=== PATIENT | female | born 2000 | race Caucasian/White ===

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

== ENCOUNTER → 2022-05-03 12:42 | Outpatient (CLI) | payer OTHER, SELFPAY ==
--- NOTE | ~2022-05-03 | CT_ITS ---
EXAMINATION: CT BRAIN W/O DATE: 05/03/2022 13:04 INDICATION: Headaches TECHNIQUE: Computed tomography (CT) of the head was performed without intravenous contrast. The dose- length product was 599.57 mGy-cm. Automated exposure control and iterative reconstruction technique w ere employed. COMPARISON: No prior studies for comparison. FINDINGS: Normal brain parenchymal volume for age. Normal nogueira-white differentiation. No acute intrac ranial hemorrhage, infarction, mass or mass effect. No ventriculomegaly or midline shift. Midline sagittal images demonstrate a normal corpus callosum, c raniovertebral junction and sella turcica. Basilar cisterns are patent. Paranasal sinuses and mastoids are pneumatized. No depressed skull fractures. IMPRESSION: 1. No acute intracranial abnormality. Reviewed, dictated and finalized at location A. CUTTER
== END ==
PROVIDERS: PCP Family Medicine; Visit Provider Internal Medicine Endocrinology, Diabetes & Metabolism
DX: G44.89 Other headache syndrome (principal)
CPT/HCPCS: 70450

== ENCOUNTER 2024-07-17 21:52 | Emergency (ER) | payer OTHER, SELFPAY ==
[2024-07-17] VITALS (10 sets, daily range): BP systolic 134–151; BP diastolic 84–99; PULSE 47–79; RESP 11–21; TEMP 36.6; O2SAT 98–100
--- NOTE | ~2024-07-17 | CT_ITS ---
CT abdomen pelvis w con Ordering provider: Nancy Maynard PA-C History: 23 years Female with . lower abd pain, n/v/d . Comparison: None. Technique: CT abdomen and pelvis with IV and without oral contrast. Automated exposure control and it erative reconstruction technique were employed. The dose-length product was 207.35 mGy-cm. 100 mL Omn ipaque 350 was given IV. Findings: VISUALIZED LOWER CHEST: Normal. UPPER ABDOMINAL ORGANS: Liver: Fat infiltration with focal fat infiltration area seen near to the interlobar fissure. Gallbladder: Normal. Spleen: Normal. Stomach/duodenum: Normal. Pancreas: Normal. Adrenals: Normal. Kidneys: Normal hyperdensity seen in the left kidney midpole may be an early excretion of contrast. S tone is less likely. Follow-up advised. PELVIC ORGANS: The bladder is normal. BOWEL AND MESENTERY: Colon: No evidence of diverticulitis. Normal appendix. Small Bowel: Normal. No obstruction. Peritoneum/mesentery: No free air or free fluid. No mesenteric lymphadenopathy. RETROPERITONEUM: Normal aorta. No retroperitoneal lymphadenopathy. MUSCULOSKELETAL: Superficial soft tissues: The superficial soft tissues are normal. Bones: normal spine. IMPRESSION: 1. No evidence of appendicitis, diverticulitis or intestinal obstruction. Reviewed, dictated and finalized at location A.
--- OUTSIDE RECORDS SUMMARY | 2024-07-17 21:54 | XMS_ITS | Encounter Summary ---
Author Organization [facility] Healthcare Address [address] [place] [address] Care Team Providers Care Second Watch Sergeant Name Role Phone Veronica Remy [facility] Primary Care Provi [facility] Encounter Details Date Type Department Care Team (Late st Contact Info) Description 07/17/2024 Patient Self-Triage [facility] HealthCare/[facility] Physicians [facility] [place] [address] Mychart, Generic Provider [address] [place], [place] [id number] Social History Tobacco Use Types Packs/Day Years Used Date Smoking Tobacco: Never Smokeless Tobacco: Never AUDIT-C Answer Date Recorded Q1: How often do you have a drink containing alcohol? Never 12/18/2023 Q2: How many drinks containi ng alcohol do you have on a typical day when you are drinking? Patient does not drink Q3: How often do you have si x or more drinks on one occasion? Never 12/18/2023 PHQ-2 Answer Date Recorded PHQ-2 Total Score (If total score is 3 or more points, staff should administer the PHQ-9) 4 12/18/2023 Personal Safety Answer Date Recorded Have you ever been in or are you currently in a harmful physical or emotional relationship or is someone making you feel afraid or unsafe? 

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
--- OUTSIDE RECORDS SUMMARY | 2024-07-17 21:54 | XMS_ITS | Encounter Summary ---
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
--- OUTSIDE RECORDS SUMMARY | 2024-07-17 21:54 | XMS_ITS | Data Portability ---
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 Plan of Treatment Reminders Order Date Submit Date Provider Last Modified By Organization Details Last Modified Time Details Appointments None recorded. Lab Tony-Christopher los syndrome multigene analysis, blood or tissue 2022 023 [facility], [address], [place], [address], 3 16:15:16 PLOD1 gene mutation analysis, blood or tissue 2022 023 [facility], [address], [place], [address], 3 16:15:17 Referral None recorded. Procedures None recorded. Surgeries None recorded. Imaging None recorded. Medication Orders None recorded. Patient TargetsNo targets recorded. Patient InstructionsNo instructions recorded. Reason for Referral None Reported. Results Created Date Observation Date Name Description Value Unit Range Abnormal Flag Note LastModifiedBy Organization Detail LastModifiedTime 12/11/1912/11/2021 HEMOG LOBIN A1C hemoglobin A1C 5.4 % 4.8-5. 6 Predi abete s: 5.7 - 6.4 Diabe eliz: >6.4 Glyce karlee contr ol for adult s with diabe eliz: <7.0 Not Available [facility] ([facility]) [address], [place], [address], 12/11/2021 08:18:12 12/11/1912/11/2021 VITAM IN B12 AND FOLAT E vitamin B12 787 pg/mL 232-12 45 Not Available [facility] ([facility]) [address] [place], [address], 12/11/2021 08:18:12 12/11/19 22 12/11/2021 VITAM IN B12 AND FOLAT E folate (folic acid), serum 8.3 NG/mL >3.0 A serum folat e brant ntrat ion of less than 3.1 ng/mL is consi dered to repre sent clini antony defic iency . Not Available [facility] ([facility]) [address] [place], [address], 12/11/2021 08:18:12 12/11/19 22 12/11/2021 COMP. METAB OLIC PANEL (14) glucose 84 mg/dL 70-99 Ple ase note refer ence inter silvino han e Not Available [facility] ([facility]) [address] [facility], [place], [address], 12/11/2021 08:18:11 12/11/19 22 12/11/2021 COMP. METAB OLIC PANEL (14) BUN 9 mg/dL 6-20 Not Available [facility] ([facility]) [address] [place], [address], 12/11/2021 08:18:11 12/11/19 22 12/11/2021 COMP. METAB OLIC PANEL (14) creatinine 0.67 mg/dL 0.57-1 .00 Not Available [facility] ([facility]) [address] [place], [address], 12/11/2021 08:18:11 12/11/19 22 12/11/2021 COMP. METAB OLIC PANEL (14) eGFR 128 mL/mi n/1.7 3 >59 Not Available [facility] ([facility]) [address] [place], [address], 12/11/2021 08:18:11 12/11/19 22 12/11/2021 COMP. METAB OLIC PANEL (14) BUN/creatini ne ratio 13 9-23 Not Available [facility] ([facility]) [address] [place], [address], 12/11/2021 08:18:11 12/11/19 22 12/11/2021 COMP. METAB OLIC PANEL (14) sodium 139 mmol/ L 134-14 4 Not Available [facility] ([facility]) [address] [place], [address], 12/11/2021 08:18:11 12/11/19 22 12/11/2021 COMP. METAB OLIC PANEL (14) potassium 4.0 mmol/ L 3.5-5. 2 Not Available [facility] ([facility]) [address] [place], [address], 12/11/2021 08:18:11 12/11/19 22 12/11/2021 COMP. METAB OLIC PANEL (14) chloride 102 mmol/ L 96-106 Not Available [facility] ([facility]) [address] [place], [address], 12/11/2021 08:18:11 12/11/19 22 12/11/2021 COMP. METAB OLIC PANEL (14) carbon dioxide, total 24 mmol/ L 20-29 Not Available [facility] ([facility]) [address] [place], [address], 12/11/2021 08:18:11 12/11/19 22 12/11/2021 COMP. METAB OLIC PANEL (14) calcium 9.2 mg/dL 8.7-10 .2 Not Available [facility] ([facility]) [address] [place], [address], 12/11/2021 08:18:11 12/11/19 22 12/11/2021 COMP. METAB OLIC PANEL (14) protein, total 7.1 g/dL 6.0-8. 5 Not Available [facility] ([facility]) [address] [place], [address], 12/11/2021 08:18:11 12/11/19 22 12/11/2021 COMP. METAB OLIC PANEL (14) albumin 4.2 g/dL 3.9-5. 0 Not Available [facility] ([facility]) [address] [place], [address], 12/11/2021 08:18:11 12/11/19 22 12/11/2021 COMP. METAB OLIC PANEL (14) globulin, total 2.9 g/dL 1.5-4. 5 Not Available [facility] ([facility]) [address], [place], [address], 12/11/2021 08:18:11 12/11/19 22 12/11/2021 COMP. METAB OLIC PANEL (14) A/G ratio 1.4 1.2-2. 2 Not Available [facility] ([facility]) [address] [place], [address], 12/11/2021 08:18:11 12/11/19 22 12/11/2021 COMP. METAB OLIC PANEL (14) bilirubin, total <0.2 mg/dL 0.0-1. 2 Not Available [facility] ([facility]) [address], [place], [address], 12/11/2021 08:18:11 12/11/19 22 12/11/2021 COMP. METAB OLIC PANEL (14) alkaline phosphatase 60 IU/L 42-106 Not Available [facility] ([facility]) [address] [place], [address], 12/11/2021 08:18:11 12/11/19 22 12/11/2021 COMP. METAB OLIC PANEL (14) AST (SGOT) 15 IU/L 0-40 Not Available [facility] ([facility]) [address] [facility], [place], [address], 12/11/2021 08:18:11 12/11/19 22 12/11/2021 COMP. METAB OLIC PANEL (14) ALT (SGPT) 9 IU/L 0-32 Not Available [facility] ([facility]) [address] [facility], [place], [address], 12/11/2021 08:18:11 12/11/19 22 12/11/2021 TSH+F REE T4 TSH 1.140 uIU/m L 0.450- 4.500 Not Available [facility] ([facility]) [address] [facility], [place], [address], 12/11/2021 08:18:11 12/11/19 22 12/11/2021 TSH+F REE T4 T4,free(dire ct) 1.39 NG/dL 0.82-1 .77 Not Available [facility] ([facility]) [address] [facility] [facility], [place], [address], 12/11/2021 08:18:11 05/03/19 23 05/03/2022 CT, head, w/o contr ast No observ ation record ed. [id number] [facility] [address], [place], [address], 05/15/2022 23:31:01 05/03/19 23 05/03/2022 CT, brain , w/o contr ast No observ ation record ed. [id number] [facility] [address], [place], [address], 05/15/2022 23:31:01 Result Notes None recorded. 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 Not Available [facility] 3 23:29:39 Chronic headache disorder 050228952 Active 2022 Not Available [facility] 3 23:29:39 Anxiety 57661216 Active 2020 Not Available [facility] 3 23:29:40 Hypermobility syndrome 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 Unintended recipients are directed to securely destroy any materials received. You are hereby notified that the unauthorized disclosure or other unlawful use of this fax or any personal health information is prohibited. To the extent patient information contained in this fax is subject to 42 CFR Part 2, this regulation prohibits unauthorized disclosure of these records. If you received this fax in error, please visit [email or web address] to notify the sender and confirm that the information will be destroyed. If you do not have internet access, please call to notify the sender and confirm that the information will be destroyed. Thank you for your attention and cooperation. [ID:[id number]][email or web address] [address] [place] [address] , Date: 07/26/2022RE: Christa Mckeon, : 2000, PT ID #[id number] Black MD, I would like to thank you for referring Christa Mckeon to our practice for consultation and evaluation of FU ON LABS , on 07/26/2022. I have enclosed a copy of the office evaluation for your records. Once again, thank you for allowing me to participate in the care of this patient. 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 Chronic headache disorder - Onset: 05/01/2022 Allergies: Reviewed Allergies QELBREE MDKUTWHK-3-[id number] ANTIMIGRAINE AGENTS ZYPREXA Medications: Reviewed Medications NameDate Source meloxicam 15 mg tabletTAKE 1 TAB ORALLY ONCE A DAY NEEDED FOR 30 DAY(S)06/18/22 filled surescripts naltrexonetake twice daily capsule, start started [id number] Family History: Mother - Tony-Danlos syndrome, type 3 - Arthritis - Cyst of ovary Maternal Grandfather - Arthritis Paternal Grandmother - Mast cell activation syndrome Maternal Grandmother - Diabetes mellitus Social History:Education and OccupationWhat is the highest grade or level of school you have completed or the highest degree you have received?: Some college, no degreeDiet and ExerciseWhat type of diet are you following?: RegularDo you have any dietary restrictions?: Yes (Notes: No pasta or flour tortilla shells)Are you following a low salt diet?: NoWhat is your exercise level?: NoneSubstance UseDo you or have you ever smoked tobacco?: Never smokerDo you or have you ever used any other forms of tobacco or nicotine?: NoHas tobacco cessation counseling been provided?: NoWhat is your level of alcohol consumption?: NoneDo you use any illicit or recreational drugs?: NoWhat is your level of caffeine consumption?: ModerateHome and EnvironmentDo you have smoke and carbon monoxide detectors in your home?: YesAre you passively exposed to smoke?: NoAre there any guns present in your home?: NoDo you use sunscreen routinely?: YesPublic Health and TravelHave you recently traveled abroad?: NoIn the 14 days before symptom onset, have you had close contact with a laboratory-confirmed COVID-19 while that case was ill?: NoIn the 14 days before symptom onset, have you had close contact with a person who is under investigation for COVID-19 while that person was ill?: NoMarriage and SexualityWhat is your relationship status?: SingleGender Identity and LGBTQ IdentityGender identity: Identifies as FemaleAssigned sex at : FemaleSurgical History none/pt Additional HistoryNone recordedHistory of Present Illness:21 yo female comes in for follow up in management of loose stool evaluation and fatigue. She still has concerns of joint aches/pains and connective tissue concerns. we sent for CT of head and this was normal labs from 07/26/22:glucose 84 mg/dlCr normalLFT normal labs from 05/09:positive stool fatnormal elastaseneg ova/parasitenormal food allergy She has struggled with joint/muscle pains. Her mother was born with bilateral hip dysplasia. 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 When she went through puberty her stomach issues became worse. She had to eat more food and was not enough. She ended up with stretch kent on her lower back. She has issues with nausea, chronic migraines. She cannot eat hard foods such as chips and taco shells.She feels she may have EDS.previous hormone/thyroid panel negative:labs from 04/05/22:normal 24 hour urine histamineTSH of 1.260 uIU/mlFT4 of 1.34 ng/dLimmunoglobulin normalrenin/stacy normaliron sat 12%progesterone 0.3 ng/mLrenin/stacy normalratio normal 16estradiol 58 pg/mltestosterone normaltryptase normalacth 13 pg/mLFSH/LH normalReview of Systems:ROS as noted in the HPIPhysical ExamConstitutional:General Appearance: healthy-appearing, well-nourished, well-developed, not anxious/nervous, and no sweating. Level of Distress: no acute distress. Eyes:Lids and Conjunctivae: no discharge, pallor, lid lag, or periorbital edema and non-injected. Neck:Neck: supple, trachea midline, no masses, and full range of motion. Thyroid: no enlargement or nodules and non-tender. Neck vessels: no carotid bruits or thyroid bruits. Lymph Nodes: no anterior cervical LAD, posterior cervical LAD, submandibular LAD, submental LAD, preauricular LAD, or supraclavicular LAD. Cardiovascular:Apical Impulse: not displaced. Heart Auscultation: normal S1 and S2; no murmurs, rubs, or gallops; and regular rate and rhythm. Lungs:Auscultation: no wheezing, rales/crackles, or rhonchi and breath sounds normal, good air movement, and clear to auscultation. Psychiatric:Mental Status: normal mood and affect, no diffuse anxiety or paranoid ideations, and active and alert.Procedure DocumentationNone recordedAssessment/Plan1. Hypermobility syndrome-Other than elevated fat in her stool sample her stools studies were normal/allergy testing for food was normal. She had normal hormone workup. I am concerned she has an underlying metabolic mutation or tony danlos mutation. I have provided a patient information form to fill out all her symptoms and concerns as these vary from muscle aches/ cramps/gastric upset/bloating/diarrhea/FTT and fatigue. Will request also tony danlos workup. Spent up to 18 minutes preparing to see the patient (eg, review of tests), obtaining and/or reviewing separately obtained history, performing a medically appropriate examination and evaluation, counseling and educating the patient, ordering medications, tests, along with documenting clinical information in the electronic health record, independently interpreting results and communicating results to the patient. RTC in 4-6 months. Patient was provided a handwritten lab order which contains our fax number. If she chooses to go outside of the [facility] to obtain labwork she was advised to provide our fax number and my information to the lab she will be obtaining labwork from in order to have her labs properly forwarded over for me to review so there is no loss of follow up due to use of outside network. She was also advised to contact our clinic informing us that she has completed her labwork so we are aware we will need to reach out to the appropriate laboratory to request her results be forwarded to us so I might have the ability to review and make further medical decision making in her case. She voiced understanding.M35.7: Hypermobility syndrome TONY-DANLOS SYNDROME MULTIGENE ANALYSIS, BLOOD OR TISSUE PLOD1 GENE MUTATION ANALYSIS, BLOOD OR TISSUE Return to Office Patient will return to the office as needed [facility] [place] [facility] [place] [facility] 07/29/2022 08:24:41 Procedures Surgical History None recorded. Imaging Results Imaging Date Name Status LastModified by Organiz ation Details LastModified Time 05/03/2022 CT, head, w/o contrast completed [id number] [facility] [address], [place], [address], 05/15/2022 23:31:01 05/03/2022 CT, brain, w/o contrast completed [id number] [facility] [address], [place], [address], 05/15/2022 23:31:01 Procedure Notes None recorded. Medical Equipment None Reported. Allergies Allergen ID Allergen Name Allergen Category Reaction Reaction Severity Criticality Documentation Date Start Date Code Code System Note Provider Name and Address Organization Details Recorded Time 30589 Zyprexa medicatio n Not available Not available Not available 05/15/2022 75539 3 RxNorm Not Available [facility] 23:30:49 98877 sumatript an medicatio n Not available Not available Not available 05/15/2022 54207 RxNorm Not Available [facility] 23:30:49 80223 viloxazin e hydrochlo ride medicatio n Not available Not available Not available 05/15/2022 50560 3 RxNorm Not Available [facility] 3 23:30:49 Medications Name Sig Start Date Stop Date Status Note LastModified by Organization Details LastModified Time cyclobenzapr ine 10 mg tablet TAKE 1/2 - 1TABLET BY MOUTH TWICE DAILY NEEDED 10 DAYS 03/05 completed Not Available Not Available Not Available meloxicam 15 mg tablet TAKE 1 TAB ORALLY ONCE A DAY NEEDED FOR 30 DAY(S) active Not Available Not Available No t Available sertraline 100 mg tablet 11/30 completed Not Available Not Available Not Available ondansetron 8 mg disintegrati ng tablet active Not Available Not Available No t Available cyproheptadi ne 4 mg tablet 11/30 completed Not Available Not Available Not Available naltrexone take twice daily capsule 2021 active Not Available Not Available Not Avai lable Vitals Date Recorded Body mass index (BMI) Body height Oxygen saturation Oxygen saturation in Arterial blood by Pulse oximetry Heart rate Body temperature Body weight Systolic blood pressure Diastolic blood pressure Provider Name and Address Organization Details Last Updated DateTime 2 18 kg/m2 158.75 cm 98 % 98 % 89 /min 97.7 [degF] 32795.2 4 g 102 mm[Hg] 60 mm[Hg] Not Available [facility] 3 23:29:07 Date Recorded Body mass index (BMI) Body height Oxygen saturation Oxygen saturation in Arterial blood by Pulse oximetry Heart rate Body temperature Body weight Systolic blood pressure Diastolic blood pressure Provider Name and Address Organization Details Last Updated DateTime 2 17.8 kg/m2 158.75 cm 98 % 98 % 68 /min 97.2 [degF] 81621.6 4 g 104 mm[Hg] 60 mm[Hg] Not Available [facility] 3 23:29:07 Date Recorded Body mass index (BMI) Body height Heart rate Body temperature Body weight Systolic blood pressure Diastolic blood pressure Provider Name and Address Organization Details Last Updated DateTime 2 17.7 kg/m2 158.75 cm 63 /min 97.7 [degF] 20875.4 9 g 108 mm[Hg] 62 mm[Hg] Not Available [facility] 3 23:29:07 Date Recorded Body mass index (BMI) Body height Oxygen saturation Oxygen saturation in Arterial blood by Pulse oximetry Heart rate Body temperature Body weight Systolic blood pressure Diastolic blood pressure Provider Name and Address Organization Details Last Updated DateTime 3 18 kg/m2 158.75 cm 99 % 99 % 96 /min 98.1 [degF] 91981.2 4 g 105 mm[Hg] 80 mm[Hg] Not Available [facility] 3 23:29:07 Date Recorded Body height Body mass index (BMI) Body mass index (BMI) [Percentile] Per age and sex Body weight Body temperature Heart rate Systolic blood pressure Diastolic blood pressure Provider Name and Address Organization Details Last Updated DateTime 3 158.75 cm 19.1 kg/m2 16 % 37925.7 9 g 98.1 [degF] 73 /min 114 mm[Hg] 65 mm[Hg] [facility] - [place] [facility] 3 15:33:38 Social History Question Answer Notes LastModified by Organization Details LastModified Time Tobacco Smoking Status Never Smoker Not Available [facility] 05/15/2022 23:28:19 What Is Your Level Of Alcohol Consumption? None [email or web address].030 [id number] Information not available 05/15/2022 What Is Your Level Of Caffeine Consumption? Moderate MIGRATION.030 [id number] Information not available 05/15/2022 In The 14 Days Before Symptom Onset, Have You Had Close Contact With A Laboratory-confi rmed COVID-19 While That Case Was Ill? No MIGRATION.030 [id number] Information not available 05/15/2022 In The 14 Days Before Symptom Onset, Have You Had Close Contact With A Person Who Is Under Investigation For COVID-19 While That Person Was Ill? No MIGRATION.030 [id number] Information not available 05/15/2022 What Type Of Diet Are You Following? REGULAR MIGRATION.030 [id number] Information not available 05/15/2022 What Is The Highest Grade Or Level Of School You Have Completed Or The Highest Degree You Have Received? PS29206-7 MIGRATION.300 [id number] Information not available 05/15/2022 Are There Any Guns Present In Your Home? No MIGRATION.030 [id number] Information not available 05/15/2022 Where Do You Live? [place] MIGRATION.030 [id number] Information not available 05/15/2022 Are You Following A Low Salt Diet? No MIGRATION.0301 [id number] Information not available 05/15/2022 What Is Your Relationship Status? Single MIGRATION.0301 [id number] Information not available 05/15/2022 Do You Have Smoke And Carbon Monoxide Detectors In Your Home? Yes MIGRATION.0301 [id number] Information not available 05/15/2022 Are You Passively Exposed To Smoke? No MIGRATION.0301 [id number] Information not available 05/15/2022 Do You Feel Stressed (tense, Restless, Nervous, Or Anxious, Or Unable To Sleep At Night)? PS59278-9 MIGRATION.0301 [id number] Information not available 05/15/2022 Do You Use Any Illicit Or Recreational Drugs? No MIGRATION.0301 [id number] Information not available 05/15/2022 Do You Use Sunscreen Routinely? Yes MIGRATION.0301 [id number] Information not available 05/15/2022 Has Tobacco Cessation Counseling Been Provided? No MIGRATION.0301 [id number] Information not available 05/15/2022 Have You Recently Traveled Abroad? No MIGRATION.0301 [id number] Information not available 05/15/2022 Do You Have Any Dietary Restrictions? Yes No Pasta Or Flour Tortilla Shells MIGRATION.0301 [id number] Information not available 05/15/2022 Do You Or Have You Ever Used Any Other Forms Of Tobacco Or Nicotine? No MIGRATION.0301 [id number] Information not available 05/15/2022 Sex: Female Functional Status Question Answer Note LastModified by Organizat ion Details LastModified Time What is your exercise level? None [id number] Information not available 05/15/2022 Mental Status None recorded. Family History Relationship Description Onset Age of this Age Resolved Age Notes LastModified by Organization Details LastModified Time Mother Hypermobile Tony-Danlo s syndrome [id number].019 [id number] Not available 05/15/2022 23:28:35 Mother Arthritis MIGRATION.467 [id number] Not available 05/15/2022 23:28:35 Mother Cyst of ovary MIGRATION.655 [id number] Not available 05/15/2022 23:28:35 Maternal Grandfather Arthritis MIGRATION.477 [id number] Not available 05/15/2022 23:28:36 Paternal Grandmother Mast cell activation syndrome MIGRATION.234 [id number] Not available 05/15/2022 23:28:36 Maternal Grandmother Diabetes mellitus MIGRATION.349 [id number] Not available 05/15/2022 23:28:36 Medical History Condition Response BLINDNESS N RHEUMATIC FEVER N KIDNEY STONES N BLADDER PROBLEMS N MRSA N OTHER # 1 N POLIO N LUNG DISEASE/DISORDER N HISTORY OF DRUG ABUSE N RADIATION / CHEMOTHERAPY N COPD N Other # 2 N BLOOD DISEASES N SURGERY N EAR OR HEARING PROBLEMS N MUMPS N SHINGLES N FEMALE PROBLEMS / INFECTIONS N DEPRESSION (INCLUDING POST ) Y BOWEL PROBLEMS Y STROKE/TIA N THYROID DISEASE N ULCERS N BENIGN PROSTATIC HYPERPLASIA N MEASLES N CERVICALGIA N TB SKIN TEST N HYPOTENSION N MYOCARDIAL INFARCTION N PARAPELGIA N OBESITY N GERD/NAUSEA Y EXCESSIVE PERSPIRATION N ANEURYSM N URINARY/BLADDER/KIDNEY PROBLEMS Y CORONARY ARTERY DISEASE (CAD) N MENIERE'S DISEASE N ADDICTION CONCERNS N ENDOMETRIOSIS N USE OF BLOOD THINNERS N SKIN PROBLEMS N EMPHYSEMA N GASTROINTESTINAL DISORDER N PARATHYROID DISEASE N MUSCLE,JOINT OR BONE PROBLEMS N GASTROINTESTINAL BLEEDING N BLOOD CLOTS N ASTHMA N CATARACTS N ERECTILE DYSFUNCTION N GI PROBLEMS Y CHF N Low Testosterone N NEUROPATHY N INFERTILITY N AIDS/HIV N FRACTURES N CHEMOTHERAPY / RADIATION N VISION/EYE PROBLEMS N LIVER DISEASE N MALE HYPOGONADISM N HYPERTENSION N TOURETTE'S N ANXIETY DISORDER Y BLOOD TRANSFUSION N ANEMIA/BLOOD DISORDER N CHRONIC EAR INFECTIONS N BRONCHITIS N TUBERCULOSIS N GLAUCOMA N FOOT PROBLEM N DIVERTICULITIS N SLEEP APNEA N CHICKENPOX N ALLERGIES/HAYFEVER N INFECTIOUS DISEASE N PROSTATE N HEART ARRHYTHMIA N INSOMNIA Y HIGH CHOLESTEROL / HYPERLIPIDEMIA N HYPERTHYROIDISM N EYE PROBLEMS N EATING DISORDER N EDEMA N CHRONIC PAIN SYNDROME N HYPOTHYROIDISM N CONSTIPATION N CAROTID BLOCKAGE N BACK / NECK PROBLEMS Y HAVE YOU BEEN HOSPITALIZED OR SEEN IN [facility] IN THE PAST YEAR ? N ATHEROSCLEROSIS N BREAST PROBLEMS N DIALYSIS N ECZEMA N FIBROMYALGIA N OSTEOPOROSIS N ARTHRITIS N NO SIGNIFICANT PAST MEDICAL HISTORY N APPENDICITIS N DIABETES, TYPE N BAD TEETH N HEARTBURN / REFLUX Y ADD/ADHD N AUTISM SPECTRUM DISORDER (ASD) N HEPATITIS / LIVER DISEASE N PULMONARY DISEASE N GOUT N SLEEP DISORDER N ALZHEIMER'S DISEASE N PAIN N HERPES N DEMENTIA N RETINOPATHY N SEIZURES/EPILEPSY N HEADACHES/MIGRAINES Y VASCULAR DISEASE N PACEMAKER N DIZZINESS N KIDNEY DISEASE N HEART DISEASE/HEART PROBLEMS N SCARLET FEVER N MULTIPLE SCLEROSIS N MENTAL DISORDER/ILLNESS N DEVELOPMENTAL OR BEHAVIORAL DISORDERS N CARDIAC ARRHYTHMIA N CANCER: SPECIFY N PNEUMONIA N Gall Stones N ATRIAL FIBRILLATION N PULMONARY EMBOLISM N AUTOIMMUNE DISEASE N Gynecological HistoryNo gynecological history recorded. Obstetrics History GPAL:G 0 P 0 0 0 0 Immunizations Vaccine Type Date Status Note Provider Nam e and Address Organization Details Recorded Time Meningococcal MCV4O completed Not Available [facility] 05/15/2022 23:30:47 Past Encounters Encounter ID Performer Location Encounter Start Date Encounter Closed Date Diagnosis/Indication Diagnosis SNOMED-CT Code Diagnosis ICD10 Code Diagnosis Note [id number] Silvia Serna MD [facility] Aby jarrell [address] [place] [address] [place] [address] 11/30/2020 00:00:00 12/01/2020 06:23:48 [id number] [facility] [place] [address] 01/25/2021 00:00:00 01/25/2021 15:19:53 [id number] Silvia Serna MD [facility] Aby jarrell [address] [place] [address] [place] [address] 11/15/2021 00:00:00 11/15/2021 22:41:29 [id number] Silvia Serna MD [facility] Aby jarrell [facility] [place] [address] 02/04/2022 00:00:00 02/04/2022 20:45:33 [id number] MD ADALB[facility] [address] [place] [address] 03/05/2022 00:00:00 03/05/2022 15:46:03 [id number] MD ADALBERTO [facility] [address] [place] [address] 04/26/2022 00:00:00 04/26/2022 16:24:17 [id number] MD ADALBERTO [facility] [address] [place] [address] 07/26/2022 15:22:52 07/26/2022 16:25:05 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 She had normal hormone workup. I am concerned she has an underlying metabolic mutation or tony danlos mutation. I have provided a patient informatio n form to fill out all her symptoms and concerns as these vary from muscle aches/ cramps/gas tric upset/bloa ting/diarr hea/FTT and fatigue. Will request also tony danlos workup. Spent up to 18 minutes preparing to see the patient (eg, review of tests), obtaining and/or reviewing separately obtained history, performing a medically appropriat e examinatio n and evaluation , counseling and educating the patient, ordering medication s, tests, along with documentin g clinical informatio n in the electronic health record, independen tly interpreti ng results and communicat ing results to the patient. RTC in 4-6 months. Patient was provided a handwritte n lab order which contains our fax number. If she chooses to go outside of the [facility] system to obtain labwork she was advised to provide our fax number and my informatio n to the lab she will be obtaining labwork from in order to have her labs properly forwarded over for me to review so there is no loss of follow up due to use of outside network. She was also advised to contact our clinic informing us that she has completed her labwork so we are aware we will need to reach out to the appropriat e laboratory to request her results be forwarded to us so I might have the ability to review and make further medical decision making in her case. She voiced understand ing. Health Concerns Section Related Observation LastModified by Organization Detai ls LastModified Time None Recorded Concern Status LastModified by Organization Details LastModified Time None Recorded Advance Directives Directive None Recorded Payers Encounter Date Sequence Insurance Name Policy Number Policy Tobar Covered Member ID Tobar Member ID Guarantor Name 07/26/2022 1 [facility] [id number] Kim Stoddard [id number] Christa Mckeon Notes Date Note Type Note Provider Name and Address Organization Details Recorded Time 07/26/2022 text/html 21 yo female com es in for follow up in management of loose stool evaluation and fatigue. She still has concerns of joint aches/pains and connective tissue concerns. we sent for CT of head and this was normal labs from 07/26/22:glucose 84 mg/dlCr normalLFT normal labs from 05/09:positive stool fatnormal elastaseneg ova/parasitenormal food allergy She has struggled with joint/muscle pains. Her mother was born with bilateral hip dysplasia. 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 When she went through puberty her stomach issues became worse. She had to eat more food and was not enough. She ended up with stretch kent on her lower back. She has issues with nausea, chronic migraines. She cannot eat hard foods such as chips and taco shells.She feels she may have EDS.previous hormone/thyroid panel negative:labs from 04/05/22:normal 24 hour urine histamineTSH of 1.260 uIU/mlFT4 of 1.34 ng/dLimmunoglobulin normalrenin/stacy normaliron sat 12%progesterone 0.3 ng/mLrenin/stacy normalratio normal 16estradiol 58 pg/mltestosterone normaltryptase normalacth 13 pg/mLFSH/LH normal Ling Almendarez MD [address] [facility] [address], [place], [address], [facility] 07/26/2022 17:16:27 OBGyn Episode No OBEpisode recorded.
--- OUTSIDE RECORDS SUMMARY | 2024-07-17 21:54 | XMS_ITS | Encounter Summary ---
Author Organization [facility] Healthcare Address [address] [place] [address] Care Team Providers Care Master Fisher Name Role Phone Veronica Remy [facility] Primary Care [facility] Reason for Visit * Reason Comments Diarrhea Entered automaticall y based on patient selection in [employer] 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 The patient-submitted questionnaire was assessed for pertinent information and the patient's problem list, medication list, and allergies were reviewed as part of the e-visit. The chart was updated to identify any changes in these areas. Diarrhea for more than two days. 5-8 in the last 24 hours. Vomiting and can't hold foods down. Lower abdominal cramping. Assessment: Diagnosis Plan 1. Gastroenteritis Plan: Zofran called in for nausea and vomiting you can take 3 times a day as needed. Focus on fluids. Brat diet with bread, rice, applesauce and toast. Camp foods. Take over the counter probiotics to help with diarrhea. If you are not able to hold fluids or food down after taking zofran, please be seen in person for evaluation. This is most likely viral or related to a food and should resolve soon. If no improvement or worse I would like you to be seen in person. The patient was given information regarding any new medication(s) prescribed, if applicable, as well as any [id number] remedies. She was given instructions regarding follow up and timeframe if symptoms worsen or don???t improve. These instructions were included in the [employer] message reply tothe patient. Patient Instructions were included in the message reply to patient. My total encounter time on 07/17/2024 was 6 minutes which was spent in the activities documented inthe note. New Medications Ordered This Visit ondansetron ODT (ZOFRAN-ODT) 4 mg disintegrating tablet Sig: Take 1 tablet (4 mg total) by mouth every 8 (eight) hours as needed for nausea or vomiting Dispense: 30 tablet Refill: 0 Stephanie Horne NP documented in this encounter Plan of Treatment Not on file documented as of this encounter Visit Diagnoses Diagnosis Gastroenteritis- Primary Other and unspecified noninfectious gastroenteritis and colitis documented in this encounter Care Teams Master Fisher Relationship Specialty Start Date End Date Veronica Remy DNP [address] [place] [address] PCP - General Family Medicine 12/18/23 documented as of this encounter
--- OUTSIDE RECORDS SUMMARY | 2024-07-17 21:55 | XMS_ITS | Clinical Summary ---
Author Organization [facility] Address [address] [place] [address] Care Team Providers Care Pipe Caulker Name Role Phone Veronica Remy [facility] Primary Care Provi cristin Allergies Active Allergy Reactions Criticality Noted Date [...] 01/01/2024 Assessment & Plan (01/20/2024 3:24 PM HOT DIP PLATING SUPERVISOR): Pending appointment with a reproductive endocrinology MRI scheduled for 01/31 Assessment & Plan (01/01/2024 4:40 PM CDT): MRI of brain ordered Refer to Reproductive Endocrinology Vision disturbance 01/01/2024 Assessment & Plan (01/01/2024 4:41 PM CDT): Brain MRI ordered Galactorrhea of both breasts 12/19/2023 Assessment & Plan (03/01/2024 12:33 PM HOT DIP PLATING SUPERVISOR): Pending appointment with a reproductive endocrinology Reschedule MRI Assessment & Plan (01/20/2024 3:24 PM HOT DIP PLATING SUPERVISOR): Pending appointment with a reproductive endocrinology MRI scheduled for 01/31 Assessment & Plan (01/01/2024 4:40 PM CDT): MRI of brain ordered Refer to Reproductive Endocrinology Assessment & Plan (12/19/2023 8:50 AM CDT): Labs ordered 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 Autism spectrum disorder 12/18/2023 ADHD (attention deficit hype ractivity disorder), combined type 12/18/2023 Assessment & Plan (03/01/2024 12:31 PM HOT DIP PLATING SUPERVISOR): Refer to psychiatry Neuropathy 12/18/2023 Assessment & Plan (01/20/2024 3:22 PM HOT DIP PLATING SUPERVISOR): Chronic and stable on gabapentin Managed by pain management Gastroesophageal reflux disease without esophagi tis 12/18/2023 Assessment & Plan (01/20/2024 3:23 PM HOT DIP PLATING SUPERVISOR): Chronic and improved on famotidine Pending GI referral appointment Assessment & Plan (12/19/2023 8:51 AM CDT): Refer to GI Take famotidine 40 mg twice daily as prescribed Follow-up in 1 month Postural orthostatic tachycardia syndrome (POTS) 11/30/2020 Assessment & Plan (03/01/2024 12:33 PM HOT DIP PLATING SUPERVISOR): Chronic and stable Pending referral appointment to Cardiology Assessment & Plan (01/20/2024 3:22 PM HOT DIP PLATING SUPERVISOR): Chronic and stable Pending referral appointment to Cardiology Assessment & Plan (12/19/2023 8:50 AM CDT): Refer to cardiology Erick-Danlos syndrome, 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 Assessment & Plan (12/19/2023 8:47 AM CDT): Refer to rheumatology Irritable bowel syndrome with constipation 12/08 Assessment & Plan (03/01/2024 12:32 PM HOT DIP PLATING SUPERVISOR): Pending referral to gastroenterology Chronic and improved on Linzess Continue Linzess 145 mcg as prescribed Assessment & Plan (01/20/2024 3:21 PM HOT DIP PLATING SUPERVISOR): Pending referral to gastroenterology Chronic and improved on Linzess Continue Linzess 145 mcg as prescribed Assessment & Plan (12/19/2023 8:49 AM CDT): Refer to gastroenterology Take Linzess 145 mcg as prescribed Medication and side effects reviewed Follow-up in 1 month Migraine without aura and wi thout status migrainosus, not intractable 12/03/2017 Assessment & Plan (03/01/2024 12:32 PM HOT DIP PLATING SUPERVISOR): Take Qulipta 30 mg daily as prescribed Medication and side effects reviewed Try to reschedule MRI Follow-up in 1 month Assessment & Plan (01/20/2024 3:22 PM HOT DIP PLATING SUPERVISOR): Pending MRI Start Nurtec 75 mg every [...] 12/18/2023 Assessment & Plan (01/20/2018 1:11 PM HOT DIP PLATING SUPERVISOR): Nyasia is a 17yo F with newly [...] behavioral, supportive and family psychotherapy Medical: -f/u Wool Spotter re mild hyperprolactinemia, which should continue to resolve off olanzapine -continue f/u with gastroenterology -consider meeting with an blast furnace keeper helper for allergy testing/help in identifying other possible [...] a dictation service. Please excuse errors in animal maintenance supervisor. Assessment & Plan (11/04/2017 10:41 AM CDT): Well controlled on sertraline 150mg as above. CTM. Encounters Date Type Department Care Team Description 07/17/2024 11:40 AM CDT E-Visit [facility] Medical Group Virtual Care [address] [place] [phone] Stephanie Horne NP Your Medications 07/17/2024 Patient Self-Triage [facility] HealthCare/ Physicians [address] [place] [id number] Mychart, Generic Provider 07/17/2024 Patient Self-Triage [facility]/ Physicians [address] [place] [id number] [facility] Generic Provider from Last 3 Months Immunizations Immunization Administration Dates Next Due Influenza, Unspecified 12/18/2023,12/15/2022(Def erred: Patient Refused) Medical History Medical History Date Comments Migraines Erick-Danlos syndrome POTS (postural orthostatic tachycardia syndrome) ADHD (attention deficit hyperactivity disorder) Autism 03/17/2021 Family History Medical History Relation Name Comments Depression Father Family history of depression - (Added by TW Conv) Substance Abuse Father smoker and a lcohol abuser Celiac disease Maternal Grandmother mass cell activation syndrome Maternal Grandmother Colon cancer Mother Erick-Danlos syndrome Mother Headache Mother Headache Mother's Sister Irritable bowel syndrome Paternal Grandmother Family history of irritable bowel syndrome - (Added by TW Conv) Relation Name Status Comments Father Maternal Grandmother Mother Mother's Sister Paternal Grandmother Social History Tobacco Use Types Packs/Day Years [...] on file Legal Sex Female 1:32 AM HOT DIP PLATING SUPERVISOR Gender Identity Not on file Sexual Orientation Not on file Obstetrics History Last Filed Vital Signs Vital Sign Reading Time Taken Comments Blood Pressure 110/60 01/20/2024 2:25 PM HOT DIP PLATING SUPERVISOR Pulse 100 01/20/2024 2:25 PM HOT DIP PLATING SUPERVISOR Temperature 36.6 C (97.9 F) 01/20/2024 2:25 PM HOT DIP PLATING SUPERVISOR Respiratory Rate 18 01/20/2024 2:25 PM HOT DIP PLATING SUPERVISOR Oxygen Saturation 98% 01/20/2024 2:25 PM HOT DIP PLATING SUPERVISOR Inhaled Oxygen Concentration - - Weight 55.7 kg (122 lb 12.8 oz) 01/20/2024 2:25 PM HOT DIP PLATING SUPERVISOR Height 157.5 cm (5' 2 ) 01/20/2024 2:25 PM HOT DIP PLATING SUPERVISOR Body Mass Index 22.46 01/20/2024 2:25 PM HOT DIP PLATING SUPERVISOR Plan of Treatment Health Maintenance Due Date Last Done Comments Hepatitis C Screening 2001 Varicella Vaccines (2 of 2 - 2-dose childhood series) 2005 01/02/2004 DTaP/Tdap/Td Vaccine (6 - Tdap) 2012 11/07/2006, 01/02/2004, 04/15/2002, Additional history exists HPV Vaccines (1 - 3-dose series) 2016 Meningococcal B Vaccine (1 o f 2 - Standard) 2017 Covid-19 Vaccine (3 - 2023-2 5 season) 2023 07/02/2020, 06/10/2020 Depression Screening 12/17/2024 12/18/2023 Cervical Cancer Screening 12/31/2024 01/01/2024, Regular Well Visit/Exam 18-64 12/31/2024 01/01/2024 Hepatitis B Screening Completed 08/24/2002 , 2001, 2001 Pneumococcal vaccine <65 Completed 003, 04/15/2002, 2001, Additional history exists Influenza Vaccine Completed 12/18/2023 Procedures Procedure Name Priority Date/Time Associated Diagnosis Comments HIGH RISK HPV DNA DETECTION WITH GENOTYPING Routine 01/01/2024 3:57 PM CDT Cervical cancer screening from Last 3 Months or Most Recently Relevant to Health Maintenance Results * High Risk HPV DNA Detection with Genotyping (Molecular component) (01/01/2024 3:57 PM CDT) HPV HR 16 Not Detected Not Detected BJ Comment:Testing performed by : [facility], [address] [facility] [place]., [address] HPV HR 18 Not Detected Not Detected PRABHA Comment:Testing performed by : [facility], [address] [facility] [place]., [address] HPV HR Non 16/18 Not Detected Not [...] this test have been verified by the [facility] Molecular Infectious Disease laboratory. Correlate with separately reported cytology results, as applicable. Interpretive data last revised 22 Testing performed by: [facility], [address] [place] [address], [address] Endocervical 01/01/2024 3:57 PM CDT 01/04/2024 7:53 AM CDT Veronica Remy [facility] BODY FLUIDS AND STOOLS ORDERABLES Final Result PRABHA [place] [address] [facility] Department [place] [address] [facility] from Last 3 Months or Most Recently Relevant to Health Maintenance Insurance [facility] CHOICE PLUS [place] [id number] Care Teams Pipe Caulker Relationship Specialty Start Date End Date Veronica Remy DNP [address] [place] [address] PCP - General Family Medicine 12/18/23
[2024-07-17 22:16] LABS: Basophils Percent Auto 0.3 % (0.2-1.2); Eosinophils Absolute Auto 0.1 K/mm3 (0-0.3); Eosinophils Percent Auto 1.6 % (0-4.4); Hematocrit 37.9 % (37.0-47.0); Hemoglobin 12.3 g/dL (12.0-15.0); Immature Granulocyte Absolute 0.02 K/mm3 (0.00-0.031); Immature Granulocyte Percent A 0.3 % (0-0.5); Lymphocytes Absolute Auto 2.66 K/mm3 (0.9-3.2); Lymphocytes Percent Auto 35.4 % (18.3-44.2); Mean Corpuscular HGB Conc 32.5 g/dl (32-36); Mean Corpuscular Hemoglobin 27.2 pg (26-34); Mean Corpuscular Volume 83.7 fl (80-100); Mean Platelet Volume 11.8 fl (7.4-10.4); Monocytes Absolute Auto 0.6 K/mm3 (0.1-0.6); Monocytes Percent Auto 8.5 % (2.6-8.5); Neutrophils Absolute Auto 4.1 K/mm3 (1.3-6.7); Neutrophils Percent Auto 53.9 % (45.5-73.1); Platelet Count Result 308 k/mm3 (150-375); Red Blood Count 4.53 M/mm3 (4.2-5.4); Red Cell Distribution Width 14.6 % (11.5-14.5); White Blood Count 7.5 K/mm3 (4.5-10.0)
[2024-07-17 22:28] LABS: Alanine Aminotransferase 17 U/L (6-35); Albumin Level 4.8 g/dL (3.5-5.1); Alkaline Phosphatase 59 U/L (38-126); Anion Gap 13 mmol/L (4-12); Aspartate Amino Transferase 24 U/L (14-36); Bilirubin,Total 0.6 mg/dL (0.2-1.3); Blood Urea Nitrogen 8 mg/dL (7-17); Calcium 9.4 mg/dL (8.4-10.2); Carbon Dioxide 23 mmol/L (22-30); Chloride 102 mmol/L (98-107); Estimated CRCL calculation 88 ml/min; Estimated Glomerular Filt Rate > 60; Glucose 99 mg/dL (65-110); Lipase 41 U/L (23-300); Potassium 3.4 mmol/L (3.4-5.0); Sodium 138 mmol/L (137-145)
[2024-07-17] MEDS: SODIUM CHLORIDE 0.9% IV 1,000 ML 999 ML IV CONT (23:26)
[2024-07-17] MEDS: ONDANSETRON INJ 4 MG/2 ML VIAL IV PUSH (23:26)
[2024-07-17] MEDS: FAMOTIDINE 20 MG/2 ML VIAL IV PUSH (23:27)
[2024-07-17] MEDS: MORPHINE SULFATE (*CRX) 2 MG/ML INJ IV PUSH (23:27)
--- NOTE | 2024-07-17 23:41 | ED_ITS ---
HPI - Abdominal Pain General Chief Complaint: Abdominal Pain <NICK Dickerson Last Filed: 07/18/24 02:29> Stated Complaint: abd pain <NICK Dickerson Last Filed: 07/18/24 02:29> Time Seen by Provider: 07/17/24 23:03 <NICK Dickerson Last Filed: 07/18/24 02:29> Source: patient <NICK Dickerson Last Filed: 07/18/24 02:29> Mode of arrival: ambulatory <NICK Dickerson Last Filed: 07/18/24 02:29> Limitations: no limitations <NICK Dickerson Last Filed: 07/18/24 02:29> History of Present Illness HPI narrative: Patient is a 23-year-old female who presents the ED with report of nausea, vomiting, diarrhea. Patient reports symptoms began on Friday night and have been persistent since then. Has had difficulty keeping down food and drink. Feels very dehydrated. Also reports having diffuse pain throughout her lower abdomen. Reports intermittent sharp stabbing pains. Reports hot and cold sweats, denies known fevers. Denies sick contacts or bad food exposure. <NICK Dickerson Last Filed: 07/18/24 02:29> Related Data Home Medications: Home Medications ?Medication ?Instructions ?Recorded ?Confirmed ?Last Taken ?Type calcium phosphate,dibasic 77 tablet PO DAILY 07/17/24 Unknown History mg-vitamin D3 400 unit tablet famotidine 40 mg tablet mg 07/17/24 Unknown History gabapentin 300 mg capsule mg 07/17/24 Unknown History linaclotide 145 mcg capsule mcg 07/17/24 Unknown History (Linzess) magnesium 200 mg tablet 200 mg PO DAILY 07/17/24 07/17/24 Unknown History ondansetron 4 mg disintegrating mg 07/17/24 Unknown History tablet rimegepant 75 mg disintegrating mg 07/17/24 Unknown History tablet (Nurtec ODT) sertraline 50 mg tablet mg 07/17/24 Unknown History <NICK Dickerson Last Filed: 07/18/24 02:29> Allergies/Adverse Reactions: Allergies Allergy/AdvReac Type Severity Reaction Status Date / Time lactose Allergy Unknown IBS Verified 07/17/24 22:15 epinephrine AdvReac Intermediate Other Verified 07/17/24 22:15 <NICK Dickerson Last Filed: 07/18/24 02:29> Review of Systems 2 Review of Systems: All systems reviewed & are unremarkable except as noted in HPI. <NICK Dickerson Last Filed: 07/18/24 02:29> All systems reviewed & are unremarkable except as noted in HPI and below < NICK Dickerson Last Filed: 07/18/24 02:29> Exam 2 Narrative: GENERAL: Well appearing, thin, non-toxic, in no acute distress. HEAD: Normocephalic, atraumatic. RESPIRATORY: Airway patent, respirations nonlabored. Clear to auscultation bilaterally, no rales, rhonchi, wheezing. CARDIOVASCULAR: Regular rate and rhythm without murmurs, rubs, or gallops. ABDOMINAL: Soft, diffuse tenderness through abdomen, worst in RLQ, no rebound, nondistended. Normoactive BS. MUSCULOSKELETAL: Moves all extremities. No gross deformities. SKIN: Warm, dry, normal color. NEURO: A&O X3. Speech clear. PSYCHIATRIC: Appropriate mood and affect. Normal interaction. <NICK Dickerson Last Filed: 07/18/24 02:29> Course Vital Signs Vital signs: Vital Signs Temperature 36.6 C 07/17/24 22:02 Pulse Rate 79 07/17/24 22:02 Respiratory Rate 20 07/17/24 22:02 Blood Pressure 151/98 H 07/17/24 22:02 Pulse Oximetry 100 07/17/24 22:02 Oxygen Delivery Room Air 07/17/24 22:02 Temperature 36.6 C 07/17/24 22:02 Pulse Rate 79 07/17/24 22:02 Respiratory Rate 20 07/17/24 22:02 Blood Pressure 151/98 H 07/17/24 22:02 Pulse Oximetry 100 07/17/24 22:02 Oxygen Delivery Room Air 07/17/24 22:02 <Nancy Maynard PA-C - Last Filed: 07/18/24 02:29> Vital Signs Temperature 36.6 C 07/17/24 22:02 Pulse Rate 79 07/17/24 22:02 Respiratory Rate 20 07/17/24 22:02 Blood Pressure 151/98 H 07/17/24 22:02 Pulse Oximetry 100 07/17/24 22:02 Oxygen Delivery Room Air 07/17/24 22:02 Temperature 36.6 C 07/17/24 22:02 Pulse Rate 79 07/17/24 22:02 Respiratory Rate 20 07/17/24 22:02 Blood Pressure 151/98 H 07/17/24 22:02 Pulse Oximetry 100 07/17/24 22:02 Oxygen Delivery Room Air 07/17/24 22:02 <Denis Garcia MD - Last Filed: 07/18/24 03:02> MDM - Abdominal Pain MDM Narrative Medical decision making narrative: Patient presented to ED with lower abdominal pain, nausea, vomiting, diarrhea. Symptoms ongoing for nearly the past 1 week. Vital signs are stable upon arrival. Patient is afebrile. Cbc without leukocytosis or anemia. Stable electrolytes. Minimal anion gap of 13. Fluids initiated. Stable kidney function. Magnesium within normal range. Normal LFTs and lipase. UA with 1+ ketones, trace leuk esterase, no other significant signs of infection. Sent for culture. UDS positive for cannabinoids and opioids, although patient received morphine here. Viral swabs were negative. CT scan of abdomen/pelvis was obtained. Patient given fluids, morphine, Zofran, Pepcid. On re-evaluation, she is feeling improved, but states pain/nausea returning. Will give additional pain control. Care signed out to Dr. Garcia pending STAT RAD CT results. <Nancy Maynard PA-C - Last Filed: 07/18/24 02:29> Patient presented to ED with lower abdominal pain, nausea, vomiting, diarrhea. Symptoms ongoing for nearly the past 1 week. Vital signs are stable upon arrival. Patient is afebrile. Cbc without leukocytosis or anemia. Stable electrolytes. Minimal anion gap of 13. Fluids initiated. Stable kidney function. Magnesium within normal range. Normal LFTs and lipase. UA with 1+ ketones, trace leuk esterase, no other significant signs of infection. Sent for culture. UDS positive for cannabinoids and opioids, although patient received morphine here. Viral swabs were negative. CT scan of abdomen/pelvis was obtained. Patient given fluids, morphine, Zofran, Pepcid. On re-evaluation, she is feeling improved, but states pain/nausea returning. Will give additional pain control. Care signed out to Dr. Garcia pending STAT RAD CT results. CT scan of the abdomen pelvis showed no acute abnormality <Denis Garcia MD - Last Filed: 07/18/24 03:02> Medical Records Attestation: I reviewed the patient's medical records. <Nancy Maynard PA-C - Last Filed: 07/18/24 02:29> Lab Data Attestation: I reviewed the patient's lab results. <Nancy Maynard PA-C - Last Filed: 07/18/24 02:29> Result diagrams: 07/17/24 22:10 07/17/24 22:10 <Nancy Maynard PA-C - Last Filed: 07/18/24 02:29> Labs: Lab Results 07/17/24 07/17/24 07/18/24 Range/Units 22:10 23:50 00:01 WBC 7.5 (4.5-10.0) K/mm3 RBC 4.53 (4.2-5.4) M/mm3 Hgb 12.3 (12.0-15.0) g/dL Hct 37.9 (37.0-47.0) % MCV 83.7 (80-100) fl MCH 27.2 (26-34) pg MCHC 32.5 (32-36) g/dl RDW 14.6 H (11.5-14.5) % Plt Count 308 (150-375) k/mm3 MPV 11.8 H (7.4-10.4) fl Immature Gran % (Auto) 0.3 (0-0.5) % Neut % (Auto) 53.9 (45.5-73.1) % Lymph % (Auto) 35.4 (18.3-44.2) % [place] % (Auto) 8.5 (2.6-8.5) % Eos % (Auto) 1.6 (0-4.4) % Baso % (Auto) 0.3 (0.2-1.2) % Lymph # (Auto) 2.66 (0.9-3.2) K/mm3 [place] # (Auto) 0.6 (0.1-0.6) K/mm3 Eos # (Auto) 0.1 (0-0.3) K/mm3 Baso # (Auto) 0.0 (0.0-0.1) K/mm3 Abs Immat Gran (auto) 0.02 (0.00-0.031) K/mm3 Absolute Neuts (auto) 4.1 (1.3-6.7) K/mm3 Absolute Nucleated RBC 0.000 (0.0-0.012) K/mm3 Nucleated RBC % 0.0 (0.0-0.2) % Sodium 138 (137-145) mmol/L Potassium 3.4 (3.4-5.0) mmol/L Chloride 102 (98-107) mmol/L Carbon Dioxide 23 (22-30) mmol/L Anion Gap 13 H (4-12) mmol/L BUN 8 (7-17) mg/dL Creatinine 0.68 L (0.7-1.0) mg/dL Estim Creat Clear Calc 88 ml/min Estimated GFR > 60 (59 - ) Glucose 99 (65-110) mg/dL Calcium 9.4 (8.4-10.2) mg/dL Magnesium 2.0 (1.6-2.3) mg/dL Total Bilirubin 0.6 (0.2-1.3) mg/dL AST 24 (14-36) U/L ALT 17 (6-35) U/L Alkaline Phosphatase 59 (38-126) U/L Total Protein 9.0 H (6.3-8.2) g/dL Albumin 4.8 (3.5-5.1) g/dL Lipase 41 (23-300) U/L Urine Color Yellow (Yellow) Urine Appearance Clear (Clear) Urine pH 6.0 (5.0-9.0) Ur Specific [place] 1.010 (1.001-1.035) Urine Protein Negative (Negative) mg/dL Urine Glucose (UA) Negative (Negative) mg/dL Urine Ketones 1+ H (Negative) mg/dL Ur Blood (Man) Trace (Negative) Urine Nitrate Negative (Negative) Urine Bilirubin Negative (Negative) Urine Urobilinogen 0.2 (<2.0) mg/dL Leukocyte Esterase Rfl Trace H (Negative) NAZ/UL Urine RBC 0-2 (0-2) /hpf Urine WBC 0-5 (0-3) /hpf Ur Squamous Epith Cells Few (Few) /hpf Urine Bacteria 1+ H /hpf Urine Casts 0-2 Urine Opiates Screen Positive A (Negative) Urine Methadone Screen Negative (Negative) Ur Barbiturates Screen Negative (Negative) Ur Phencyclidine Scrn Negative (Negative) Ur Amphetamine Screen Negative (Negative) U Benzodiazepines Scrn Negative (Negative) Urine Cocaine Screen Negative (Negative) U Cannabinoids Screen Positive A (Negative) Influenza A (RT-PCR) Negative (Negative) Influenza B (RT-PCR) Negative (Negative) RSV (RT-PCR) Negative (Negative) SARS-CoV-2 RNA (RT-PCR) Negative (Negative) <Nancy Maynard PA-C - Last Filed: 07/18/24 02:29> Lab Results 07/17/24 07/17/24 07/18/24 Range/Units 22:10 23:50 00:01 WBC 7.5 (4.5-10.0) K/mm3 RBC 4.53 (4.2-5.4) M/mm3 Hgb 12.3 (12.0-15.0) g/dL Hct 37.9 (37.0-47.0) % MCV 83.7 (80-100) fl MCH 27.2 (26-34) pg MCHC 32.5 (32-36) g/dl RDW 14.6 H (11.5-14.5) % Plt Count 308 (150-375) k/mm3 MPV 11.8 H (7.4-10.4) fl Immature Gran % (Auto) 0.3 (0-0.5) % Neut % (Auto) 53.9 (45.5-73.1) % Lymph % (Auto) 35.4 (18.3-44.2) % [place] % (Auto) 8.5 (2.6-8.5) % Eos % (Auto) 1.6 (0-4.4) % Baso % (Auto) 0.3 (0.2-1.2) % Lymph # (Auto) 2.66 (0.9-3.2) K/mm3 [place] # (Auto) 0.6 (0.1-0.6) K/mm3 Eos # (Auto) 0.1 (0-0.3) K/mm3 Baso # (Auto) 0.0 (0.0-0.1) K/mm3 Abs Immat Gran (auto) 0.02 (0.00-0.031) K/mm3 Absolute Neuts (auto) 4.1 (1.3-6.7) K/mm3 Absolute Nucleated RBC 0.000 (0.0-0.012) K/mm3 Nucleated RBC % 0.0 (0.0-0.2) % Sodium 138 (137-145) mmol/L Potassium 3.4 (3.4-5.0) mmol/L Chloride 102 (98-107) mmol/L Carbon Dioxide 23 (22-30) mmol/L Anion Gap 13 H (4-12) mmol/L BUN 8 (7-17) mg/dL Creatinine 0.68 L (0.7-1.0) mg/dL Estim Creat Clear Calc 88 ml/min Estimated GFR > 60 (59 - ) Glucose 99 (65-110) mg/dL Calcium 9.4 (8.4-10.2) mg/dL Magnesium 2.0 (1.6-2.3) mg/dL Total Bilirubin 0.6 (0.2-1.3) mg/dL AST 24 (14-36) U/L ALT 17 (6-35) U/L Alkaline Phosphatase 59 (38-126) U/L Total Protein 9.0 H (6.3-8.2) g/dL Albumin 4.8 (3.5-5.1) g/dL Lipase 41 (23-300) U/L Urine Color Yellow (Yellow) Urine Appearance Clear (Clear) Urine pH 6.0 (5.0-9.0) Ur Specific [place] 1.010 (1.001-1.035) Urine Protein Negative (Negative) mg/dL Urine Glucose (UA) Negative (Negative) mg/dL Urine Ketones 1+ H (Negative) mg/dL Ur Blood (Man) Trace (Negative) Urine Nitrate Negative (Negative) Urine Bilirubin Negative (Negative) Urine Urobilinogen 0.2 (<2.0) mg/dL Leukocyte Esterase Rfl Trace H (Negative) NAZ/UL Urine RBC 0-2 (0-2) /hpf Urine WBC 0-5 (0-3) /hpf Ur Squamous Epith Cells Few (Few) /hpf Urine Bacteria 1+ H /hpf Urine Casts 0-2 Urine Opiates Screen Positive A (Negative) Urine Methadone Screen Negative (Negative) Ur Barbiturates Screen Negative (Negative) Ur Phencyclidine Scrn Negative (Negative) Ur Amphetamine Screen Negative (Negative) U Benzodiazepines Scrn Negative (Negative) Urine Cocaine Screen Negative (Negative) U Cannabinoids Screen Positive A (Negative) Influenza A (RT-PCR) Negative (Negative) Influenza B (RT-PCR) Negative (Negative) RSV (RT-PCR) Negative (Negative) SARS-CoV-2 RNA (RT-PCR) Negative (Negative) <Denis Garcia MD - Last Filed: 07/18/24 03:02> Imaging Data Attestation: I personally reviewed and interpreted this imaging study as follows: < Nancy Maynard PA-C - Last Filed: 07/18/24 02:29> Discharge Plan Discharge Clinical Impression: Lower abdominal pain, Gastroenteritis <Nancy Maynard PA-C - Last Filed: 07/18/24 02:29> Patient Disposition: Home <Nancy Maynard PA-C - Last Filed: 07/18/24 02:29> Condition: Stable <Nancy Maynard PA-C - Last Filed: 07/18/24 02:29> Instructions: Antibiotic Form, Dehydration (ED), Gastroenteritis (ED), Abdominal Pain (ED) <Nancy Maynard PA-C - Last Filed: 07/18/24 02:29> Additional Instructions: Continue Tylenol, ibuprofen, Bentyl as needed for further abdominal discomfort. Utilize zofran as needed for further nausea. Increase fluid intake. Recommend electrolyte rich fluids, gatorade, pedialyte, body armour. Recommend clear liquids or bland diet until symptoms improve, such as bananas, rice, applesauce, toast, or crackers. Follow up with your primary care doctor for further evaluation. Return to the ED if you experience worsening or severe symptoms, unable to keep down food or drink, severe pain, fevers, rectal bleeding, vomiting blood, or any other symptoms of concern. <Nancy Maynard PA-C - Last Filed: 07/18/24 02:29> Patient Language: Prydeinig <Nancy Maynard PA-C - Last Filed: 07/18/24 02:29> Prescriptions: New dicyclomine 20 mg tablet 20 mg PO TID PRN (Reason: Abdominal Discomfort) Qty: 15 0RF ondansetron 4 mg tablet,disintegrating 4 mg PO Q8H PRN (Reason: nausea and vomiting) Qty: 15 0RF No Action famotidine 40 mg tablet gabapentin 300 mg capsule ondansetron 4 mg tablet,disintegrating sertraline 50 mg tablet Linzess 145 mcg capsule Nurtec ODT 75 mg tablet,disintegrating calcium phos,dibas-vitamin D3 77-400 mg-unit tablet PO DAILY magnesium 200 mg tablet 200 mg PO DAILY <Nancy Maynard PA-C - Last Filed: 07/18/24 02:29> Follow-up/Referrals: Veronica Remy [Other] <Nancy Maynard PA-C - Last Filed: 07/18/24 02:29> Time of Disposition: 03:02 <Nancy Maynard PA-C - Last Filed: 07/18/24 02:29> 03:02 <Denis Garcia MD - Last Filed: 07/18/24 03:02>
[2024-07-18] VITALS (17 sets, daily range): BP systolic 93–129; BP diastolic 59–74; PULSE 50–75; RESP 14–24; O2SAT 95–100
--- NOTE | 2024-07-18 00:05 | PC.NURSE ---
Patient used [facility] to provide UA.
[2024-07-18 00:14] LABS: Add Urine Microscopic? YES; Appearance Urine Clear (Clear); Bacteria Urine 1+ /hpf; Bilirubin Urine Negative (Negative); Blood Urine Trace (Negative); Color Urine Yellow (Yellow); Glucose Urine UA Negative (Negative); Ketones Urine 1+ mg/dL (Negative); Leukocyte Esterase Ur Trace LEU/UL (Negative); Nitrate Urine Negative (Negative); Non Pathogenic Casts 0-2; Protein Urine Negative (Negative); RBC Urine 0-2 /hpf (0-2); Squamous Epithelial Cell Urine Few /hpf (Few); Urobilinogen Urine 0.2 mg/dL (<2.0); WBC Urine 0-5 /hpf (0-3)
--- NOTE | 2024-07-18 00:18 | PC.NURSE ---
Patient taken to CT via stretcher at this time.
[2024-07-18 00:26] LABS: Amphetamine Screen Urine Negative (Negative); Barbiturate Screen Urine Negative (Negative); Benzodiazepines Screen Urine Negative (Negative); Cannabinoid Screen Urine Positive (Negative); Cocaine Screen Urine Negative (Negative); Methadone Screen Urine Negative (Negative); Opiate Screen Urine Positive (Negative); Phencyclidine Screen Urine Negative (Negative)
[2024-07-18 00:30] LABS: Influenza A QL RT-PCR Negative (Negative); Influenza B QL RT-PCR Negative (Negative); RSV RNA, RT-PCR Negative (Negative); SARS-CoV-2 RNA PCR Negative (Negative)
[2024-07-18] MEDS: MORPHINE SULFATE (*CRX) 4 MG/ML INJ IV PUSH (02:53)
[2024-07-18] MEDS: METOCLOPRAMIDE HCL INJ 10 MG/2 ML VIAL IV PUSH (02:53)
[2024-07-18] MEDS: diphenhydrAMINE HCl INJ 50 MG/ML VIAL 25 MG IV PUSH (02:53)
[2024-07-19 11:57] LABS: BEDSIDEPREGUCG Negative (Negative)
== END 2024-07-18 03:55 | disposition home or self-care (01) ==
PROVIDERS: Emergency Medicine; Emergency Provider Physician Assistant
DX: K52.9 Noninfective gastroenteritis and colitis, unspecified (principal); Z20.822 Contact with and (suspected) exposure to COVID-19
CPT/HCPCS: 36415; 74177; 80053; 80307; 81001; 81025; 83690; 83735; 85025; 87086; 87637; 96361; 96374; 96375; 99284; J1200; J2270; J2405; J2765; J7030; Q9967